=== PATIENT | male | born 1940 | race Native Hawaiian/Other Pacific Islander ===

== ENCOUNTER 2018-09-21 15:17 | Emergency (ER) | payer OTHER ==
[~2018-09-21] VITALS: Ht 177.8 cm; Wt 95.3 kg
[2018-09-21 15:32] VITALS: BP 127/53; TEMP 98.7
[2018-09-21 15:59] LABS: PLATELET COUNT 283 K/uL (142-355)
[2018-09-21] MEDS ORDERED: LORA0.5T17 PO (17:27)
[2018-09-21] MEDS ORDERED: QUET25TA2 PO (17:28)
[2018-09-21] MEDS ORDERED: LEVE5MLUD PO (17:30)
== END 2018-09-21 16:27 | disposition other institution (70) ==
LOC: ED 15:17
PROVIDERS: Student in an Organized Health Care Education/Training Program
DX: F03.90 Unspecified dementia, unspecified severity, without behavioral disturbance, psychotic disturbance, mood disturbance, and anxiety (principal); Z04.6 Encounter for general psychiatric examination, requested by authority
CPT/HCPCS: 36415; 80053; 85027; 93005; 99285